=== PATIENT | male | born 1975 | race Two or more races ===

== ENCOUNTER 2018-07-19 21:29 | Emergency (ER) | payer OTHER ==
[2018-07-19 21:41] VITALS: BMI 25.8
--- NOTE | 2018-07-19 21:42 | PDOC ---
History of Present Illness - General Chief Complaint: Lightheaded Stated Complaint: AMS Time Seen by Provider: 07/19/18 21:42 - History of Present Illness Initial Comments: 07/19/18 22:06 The patient is a 42 year old male with a PMH of HTN who presents to our ED c/o acute onset of lightheadedness. Parents @ bedside assist with history. Patient was sitting talking with his parents when he suddenly felt lightheaded. Endorses some associated shortness of breath, denies chest pain, palpitations , nausea, diaphoresis. No previous similar episodes. Symptoms resolved within 10-15 minutes. Mother notes patient has not taken his BP medications for the last 2 days. States patient takes Amlodipine and one other BP medication that she cannot remember the name. 25 pack year smoker. No previous cardiac evaluation. No family cardiac history. The patient denies chest pain, abdominal pain, nausea/vomiting, diarrhea/ constipation, dysuria/hematuria, numbness/tingling. NKDA Surgical: denies Social: 1 ppd for 25 years, denies other toxic habits PMD: Dr. Sarabjit Heaton Past History - Past Medical History Allergies/Adverse Reactions: Allergies Allergy/AdvReac Type Severity Reaction Status Date / Time No Known Allergies Allergy Verified 04/15/18 11:19 Home Medications: Ambulatory Orders NK [No Known Home Medication] 06/16/14 COPD: No HTN: Yes - Suicide/Smoking/Psychosocial Hx Smoking Status: Yes Smoking History: Never smoked Have you smoked in the past 12 months: Yes Number of Cigarettes Smoked Daily: 20 Information on smoking cessation initiated: No Hx Alcohol Use: No Drug/Substance Use Hx: No Substance Use Type: None Review of Systems - Review of Systems Constitutional: No: Chills, Fever HEENTM: No: Blurred Vision, Double Vision Respiratory: Yes: Shortness of Breath Cardiac (ROS): Yes: Lightheadedness. No: Chest Pain, Palpitations, Syncope ABD/GI: No: Constipated, Diarrhea, Nausea, Vomiting : No: Burning, Dysuria *Physical Exam - Vital Signs Last Vital Signs Temp Pulse Resp BP Pulse Ox 97.8 F 89 20 165/100 99 07/19/18 21:36 07/19/18 21:36 07/19/18 21:36 07/19/18 21:36 07/19/18 21:36 - Physical Exam General Appearance: Yes: Nourished, Appropriately Dressed, Other HEENT: positive: Normal Voice, Hearing Grossly Normal Neck: positive: Trachea midline, Supple Respiratory/Chest: positive: Lungs Clear, Normal Breath Sounds Cardiovascular: positive: S1, S2. negative: Edema, JVD Vascular Pulses: Dorsalis-Pedis (R): 2+, Doralis-Pedis (L): 2+ Gastrointestinal/Abdominal: positive: Normal Bowel Sounds, Soft Extremity: positive: Normal Capillary Refill, Normal Inspection Integumentary: positive: Normal Color, Dry, Warm Neurologic: positive: Fully Oriented, Alert Heart Score/ECG Review - ECG Impressions Comment:: 07/21/18 01:40 SR HR 89, left atrial enlargement, no ZHOU/STD/TWI, non-ischemic ECG. ED Treatment Course - LABORATORY CBC & Chemistry Diagram: 07/19/18 22:30 07/19/18 22:30 Medical Decision Making - Medical Decision Making 07/19/18 22:29 42 year old male with 25 pack year history presents with acute onset of lightheadedness w/associated subjective dyspnea. Hypertensive (165/100) @ presentation. H/o non-medication adherence. Will obtain basic labs, EKG, Troponin. Reassess. ECG non-ischemic, documented in ECG section of EMR 07/19/18 22:52 Leukocytosis (13.4) - will obtain UA, CXR to r/o active infection 07/19/18 23:09 Cr 1.4 (previous Cr 1.3) Troponin (-) x1 07/19/18 23:14 UA shows 3+ blood, 72 RBC. Will obtain spiral CT to r/o stone. 07/20/18 00:09 Repeat BP 148/83 Patient signed out to Dr. Liang (Resident) and Dr. Romo (Attending) awaiting abdominal CT. *DC/Admit/Observation/Transfer Diagnosis at time of Disposition: Atypical chest pain, Renal cyst - Discharge Dispostion Disposition: HOME Condition at time of disposition: Stable - Referrals Referrals: Bruno Meek MD [Primary Care Provider] - Anselmo Heaton MD [Staff Physician] - - Patient Instructions Printed Discharge Instructions: DI for Atypical Chest Pain Additional Instructions: Please follow up with your primary care physician in 1-[address] You had a [address] scan which showed that you had a small cyst in your left kidney. Please ask Dr. Heaton which urologist you should follow up with. Please return to the ER if you have any signs or symptoms of chest pain, shortness of breath, uncontrollable fever, chills, nausea, vomiting, numbness, tingling, or weakness in any part of your body, changes in vision, or slurred speech. Please return to the ER if symptoms persist, worsen, or new symptoms arise. - Post Discharge Activity
[2018-07-19] MEDS ORDERED: amLODIPine BESYLATE 5 MG TABLET (FP) PO ONE (22:07)
[2018-07-19] MEDS ORDERED: amLODIPine BESYLATE 5 MG TABLET (FP) ONE (22:22)
--- NOTE | 2018-07-19 22:24 | PDOC ---
Attending Attestation - Resident Resident Name: Ashley Ugalde - ED Attending Attestation I have performed the following: I have examined & evaluated the patient, The case was reviewed & discussed with the resident, I agree w/resident's findings & plan, Exceptions are as noted - HPI HPI: 07/19/18 22:23 Well-nourished well-developed 42-year-old male presents to the emergency department after an episode of lightheadedness. He denies headache, nausea, vomiting, chest pain or shortness Or extremity weakness or confusion - Physicial Exam PE: 07/19/18 22:25 wnwd 42 yo male p/w after feeling lightheaded and fatigued head ncat eyes fortunato eomi neck supple,no jvd,no bruits lungs cta b/l cvs [id number] no murmer abd nontender no cva tenderness extremitties no deformities skin warm and dry neuro axx3,ambulatory - Medical Decision Making 07/19/18 22:30 pmh migraines social history 20 pk year tobacco history, works at [employer] PCP Dr Heaton 07/19/18 22:33 diff diag: vertigo/prodromal symptoms/atypical ACS plan ekg/cbc/comp
[2018-07-19 22:38] LABS: BASO % 0.6 % (0-2.0); EOS % 1.2 % (0-4.5); HEMATOCRIT 39.2 % (35.4-49); HEMOGLOBIN 13.9 GM/dL (11.7-16.9); LYMPH % 12.8 % (8-40); MCHC 35.4 g/dl (32.0-35.9); MEAN CELL VOLUME 84.7 fl (80-96); MEAN PLT VOLUME 8.4 fl (7.5-11.1); MONO % 5.5 % (3.8-10.2); NEUT % 79.9 % (42.8-82.8); PLATELET COUNT 265 K/MM3 (134-434); RBC 4.63 M/mm3 (4.00-5.60); RDW 13.9 % (11.9-15.9); WHITE BLOOD COUNT 13.4 K/mm3 (4.0-10.0)
[2018-07-19 23:01] LABS: ALBUMIN 3.6 g/dl (3.4-5.0); ALK PHOS 97 U/L (45-117); ANION GAP 7 MMOL/L (8-16); BILIRUBIN,TOTAL 0.2 mg/dL (0.2-1); BLOOD UREA NITROGEN 17 mg/dL (7-18); CALCIUM 8.5 mg/dL (8.5-10.1); CHLORIDE 107 mmol/L (98-107); CO2 27 mmol/L (21-32); CREATININE 1.4 mg/dL (0.55-1.3); GLUCOSE,RANDOM 135 mg/dL (74-106); POTASSIUM 3.7 mmol/L (3.5-5.1); SGOT/AST 23 U/L (15-37); SGPT/ALT 46 U/L (13-61); SODIUM 140 mmol/L (136-145); TOT PROT 7.1 g/dl (6.4-8.2)
[2018-07-19] MEDS ORDERED: SODIUM CHLORIDE 0.9% 500 ML INFUS.BAG IV ONE (23:09)
[2018-07-19 23:17] VITALS: BP 138/75
[2018-07-19 23:22] VITALS: PULSE 88; TEMP 98.5
[2018-07-19 23:54] LABS: URINE APPEARANCE CLEAR; URINE BILIRUBIN NEGATIVE (<2.0 mg/dL); URINE COLOR LTYELLOW; URINE GLUCOSE (UA) NEGATIVE (NEGATIVE); URINE KETONE NEGATIVE (NEGATIVE); URINE LEUK ESTERASE NEGATIVE (NEGATIVE); URINE NITRITE NEGATIVE (NEGATIVE); URINE PROTEIN NEGATIVE (NEGATIVE); URINE UROBILINOGEN NEGATIVE mg/dL (0.2-1.0)
[2018-07-19 23:57] LABS: URINE MUCUS RARE
--- NOTE | 2018-07-20 00:06 | PDOC ---
*Physical Exam - Vital Signs Last Vital Signs Temp Pulse Resp BP Pulse Ox 98.5 F 88 20 138/75 98 07/19/18 23:15 07/19/18 23:15 07/19/18 23:15 07/19/18 23:15 07/19/18 23:15 ED Treatment Course - LABORATORY CBC & Chemistry Diagram: 07/19/18 22:30 07/19/18 22:30 - ADDITIONAL ORDERS Additional order review: Laboratory Results 07/19/18 07/19/18 23:20 22:30 Sodium 140 Potassium 3.7 Chloride 107 Carbon Dioxide 27 Anion Gap 7 L BUN 17 Creatinine 1.4 H Creat Clearance w eGFR 55.85 Random Glucose 135 H Calcium 8.5 Total Bilirubin 0.2 AST 23 ALT 46 Alkaline Phosphatase 97 Creatine Kinase 96 Troponin I < 0.02 Total Protein 7.1 Albumin 3.6 Urine Color Ltyellow Urine Appearance Clear Urine pH 6.0 Ur Specific Patterson 1.014 Urine Protein Negative Urine Glucose (UA) Negative Urine Ketones Negative Urine Blood 3+ H Urine Nitrite Negative Urine Bilirubin Negative Urine Urobilinogen Negative Ur Leukocyte Esterase Negative Urine WBC (Auto) 2 Urine RBC (Auto) 72 Urine Mucus Rare 07/19/18 22:30 RBC 4.63 MCV 84.7 MCHC 35.4 RDW 13.9 MPV 8.4 Neutrophils % 79.9 Lymphocytes % 12.8 Monocytes % 5.5 Eosinophils % 1.2 Basophils % 0.6 - Medications Given in the ED: ED Medications Discontinued Medications Generic Name Dose Route Start Last Admin Trade Name Freq PRN Reason Stop Dose Admin Amlodipine Besylate 5 mg 07/19/18 22:07 07/19/18 22:24 Norvasc - PO 07/19/18 22:08 5 mg ONCE ONE Administration Sodium Chloride 1,000 ml 07/19/18 23:09 07/19/18 23:11 Normal Saline - IV 07/19/18 23:10 1,000 ml ONCE ONE Administration Medical Decision Making - Medical Decision Making 07/20/18 00:04 Pt signed out to me by Dr. Ugalde. 42M with a PMH of HTN who presents s/p episode of lightheadedness and SOB. Pending 2 troponin r/o. Repeat troponin ordered. CXR pending. Urine shows hematuria. 07/20/18 02:11 Repeat troponin negative. Spiral CT indicates renal cyst which may be hemorrhagic and causing hematuria. Will inform pt. 07/20/18 02:33 Pt informed and understands need to f/u with PCP. Will d/c home with PCP f/u. *DC/Admit/Observation/Transfer Diagnosis at time of Disposition: Atypical chest pain, Renal cyst - Discharge Dispostion Disposition: HOME Condition at time of disposition: Stable Decision to Admit order: No - Referrals Referrals: Bruno Meek MD [Primary Care Provider] - Anselmo Heaton MD [Staff Physician] - - Patient Instructions Printed Discharge Instructions: DI for Atypical Chest Pain Additional Instructions: Please follow up with your primary care physician in 1-[address] days[address] You had a [address] scan which showed that you had a small cyst in your left kidney. Please ask Dr. Heaton which urologist you should follow up with. Please return to the ER if you have any signs or symptoms of chest pain, shortness of breath, uncontrollable fever, chills, nausea, vomiting, numbness, tingling, or weakness in any part of your body, changes in vision, or slurred speech. Please return to the ER if symptoms persist, worsen, or new symptoms arise. - Post Discharge Activity
--- NOTE | 2018-07-20 10:30 | EKG ---
Test Reason : Blood Pressure : / mmHG Vent. Rate : 089 BPM Atrial Rate : 089 BPM P-R Int : 156 ms QRS Dur : 086 ms QT Int : 358 ms P-R-T Axes : 057 047 034 degrees QTc Int : 435 ms NORMAL SINUS RHYTHM POSSIBLE LEFT ATRIAL ENLARGEMENT BORDERLINE ECG WHEN COMPARED WITH ECG OF 15-APR-2018 11:21, T WAVE AMPLITUDE HAS DECREASED IN ANTERIOR LEADS Confirmed by PARVIZ VALENCIA MD ([id number]) on 07/20/2018 10:30:18 AM Referred By: Confirmed By:PARVIZ VALENCIA MD
== END 2018-07-20 03:36 | disposition home or self-care (01) ==
LOC: JER 21:29
DX: R07.9 Chest pain, unspecified (principal); I10 Essential (primary) hypertension; N28.1 Cyst of kidney, acquired
CPT/HCPCS: 36415; 71045-TC-FY; 74176; 80053; 81003; 81015; 82550; 84484; 85025; 93005; 93010; 99283-25

== ENCOUNTER 2018-12-19 09:48 | Emergency (ER) | payer OTHER ==
[2018-12-19 09:55] VITALS: BP 159/97; PULSE 82; TEMP 98.2; BMI 25.8
[2018-12-19] MEDS ORDERED: KETOROLAC TROMETHAMINE 60 MG/2 ML VIAL IM ONE (10:05)
[2018-12-19] MEDS ORDERED: CYCLOBENZAPRINE HCL 10 MG TABLET (FP) ONE (10:07)
[2018-12-19] MEDS ORDERED: KETOROLAC TROMETHAMINE 60 MG/2 ML VIAL ONE (10:07)
--- NOTE | 2018-12-19 10:11 | PDOC ---
History of Present Illness - General Chief Complaint: Pain, Acute Stated Complaint: LT SIDE STIFF NECK Time Seen by Provider: 12/19/18 10:02 History Source: Patient (woke with stiff neck to the left this morning, no BUZZ nicholson,f/c) Exam Limitations: No Limitations - History of Present Illness Timing/Duration: unsure Associated Symptoms: denies: fever/chills, headaches, nausea/vomiting, shortness of breath, weakness Past History - Travel Close contact w/someone who was outside of country & ill: No - Past Medical History Allergies/Adverse Reactions: Allergies Allergy/AdvReac Type Severity Reaction Status Date / Time No Known Allergies Allergy Verified 12/19/18 09:53 Home Medications: Ambulatory Orders Cyclobenzaprine HCl [Flexeril 10 mg] 10 mg PO BID PRN 5 Days #20 tablet Ibuprofen 800 mg PO ACDIN 7 Days #21 tablet 12/19/18 COPD: No HTN: Yes - Immunization History Immunization Up to Date: Yes - Suicide/Smoking/Psychosocial Hx Smoking Status: Yes Smoking History: Current every day smoker Have you smoked in the past 12 months: Yes Number of Cigarettes Smoked Daily: 20 Information on smoking cessation initiated: No Hx Alcohol Use: No Drug/Substance Use Hx: No Substance Use Type: None Review of Systems - Review of Systems Constitutional: No: Chills, Fever HEENTM: No: Throat Pain, Throat Swelling Respiratory: No: Shortness of Breath Cardiac (ROS): No: Chest Pain, Irregular Heart Rate, Palpitations, Chest Tightness Musculoskeletal: Yes: Neck Pain, Other (left neck stiffness). No: Muscle Pain, Muscle Weakness Neurological: No: Headache, Numbness, Paresthesia, Tingling, Weakness, Unsteady Gait, Ataxia, Dizziness *Physical Exam - Vital Signs Last Vital Signs Temp Pulse Resp BP Pulse Ox 98.2 F 82 16 159/97 97 12/19/18 09:53 12/19/18 09:53 12/19/18 09:53 12/19/18 09:53 12/19/18 09:53 - Physical Exam General Appearance: Yes: Nourished HEENT: positive: EOMI, CIPRIANO, TMs Normal, Pharynx Normal Neck: positive: Supple, Decreased range of motion (+ tenderness and spasm in anterior fiber of scm muscle and trapezius on the left, + lateral flexion about 20 degrees. 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 intact, Fully Oriented, Alert, Normal Mood/ Affect, Normal Response, Motor Strength 5/5 Medical Decision Making - Medical Decision Making 12/19/18 10:11 43y/o M with left sided neck stiffness and pain upon awakening this morning denies trauma, GREBER, visible disturbance, f/c exam consistent with limited lateral flexion on the left side with tenderness on the the SCM and trapezius muscle, no meningeal sign suspect muscle spasm toradol and muscle relaxer given dispo pending 12/19/18 10:18 12/19/18 11:19 pt reassessed after meds, felt much better *DC/Admit/Observation/Transfer Diagnosis at time of Disposition: Torticollis - Discharge Dispostion Disposition: HOME Condition at time of disposition: Stable Decision to Admit order: No - Prescriptions Prescriptions: Cyclobenzaprine HCl [Flexeril 10 mg] 10 mg PO BID PRN 5 Days #20 tablet PRN Reason: Pain Level 4 - 6 Ibuprofen 800 mg PO ACDIN 7 Days #21 tablet - Referrals Referrals: Romi Sethi MD [Primary Care Provider] - - Patient Instructions Printed Discharge Instructions: Torticollis Additional Instructions: Please lie flat today apply warm compress to area Follow up with your PCP in 2-3 days for reassessment Return to the ER if worsening symptoms occurs - Post Discharge Activity Forms/Work/School Notes: Back to Work
[2018-12-19] MEDS ORDERED: CYCLOBENZAPRINE HCL 5 MG TABLET PO SCH (10:15)
== END 2018-12-19 11:27 | disposition home or self-care (01) ==
LOC: JERFT 09:48
PROC: 3E0233Z Introduction of Anti-inflammatory into Muscle, Percutaneous Approach (ICD-10-PCS; principal; 2018-12-19)
DX: M43.6 Torticollis (principal); I10 Essential (primary) hypertension
CPT/HCPCS: 96372; 99281-25

== ENCOUNTER 2019-01-18 23:21 | Emergency (ER) | payer OTHER ==
[2019-01-18 23:24] VITALS: BMI 25.8
[2019-01-18] MEDS ORDERED: ACETAMINOPHEN 1000 MG/100 ML VIAL (NON FORMULARY) IVPB ONE (23:56)
[2019-01-18] MEDS ORDERED: SODIUM CHLORIDE 0.9% 500 ML INFUS.BAG IV ONE (23:56)
--- NOTE | 2019-01-19 | PDOC ---
History of Present Illness - General Chief Complaint: Blood Pressure Problem Stated Complaint: HIGH BLOOD PRESURE Time Seen by Provider: 01/18/19 23:32 - History of Present Illness Initial Comments: 01/18/19 23:57 The patient is a 43 year old male with a PMH of HTN and migraines who presents to our ED c/o 2-3 days of headache. Headache is frontal and pounding and today patient had 4 episodes of NBNB emesis prompting him to come to the ED. Quality and severity not consistent w/previous migraines. Took an Amlopdipine and Losartan today at 3 pm, notes he has not taken his BP medications for the last 2 -3 months. Measuring BP at home over the last 2-3 days with 180's-220's/100's- 130's) 28 year pack year history. NKDA Medications: Amlodipine (5 mg QD), Lisinopril (100 mg QD) - non adherent As per EMR, patient evaluated in our ED in 2012-2018for lightheadedness and headaches. 01/19/19 00:22 Past History - Past Medical History Allergies/Adverse Reactions: Allergies Allergy/AdvReac Type Severity Reaction Status Date / Time No Known Allergies Allergy Verified 01/18/19 23:24 Home Medications: Ambulatory Orders Cyclobenzaprine HCl [Flexeril 10 mg] 10 mg PO BID PRN 5 Days #20 tablet Ibuprofen 800 mg PO ACDIN 7 Days #21 tablet 12/19/18 COPD: No HTN: Yes - Immunization History Immunization Up to Date: Yes - Suicide/Smoking/Psychosocial Hx Smoking Status: Yes Smoking History: Current every day smoker Have you smoked in the past 12 months: Yes Number of Cigarettes Smoked Daily: 20 Information on smoking cessation initiated: Yes Hx Alcohol Use: No Drug/Substance Use Hx: No Substance Use Type: None Review of Systems - Review of Systems Constitutional: No: Chills, Fever HEENTM: Yes: Other (headache) Respiratory: No: Cough, Shortness of Breath Cardiac (ROS): No: Chest Pain, Lightheadedness, Palpitations, Syncope ABD/GI: No: Constipated, Diarrhea, Nausea, Vomiting : No: Burning, Dysuria *Physical Exam - Vital Signs Last Vital Signs Temp Pulse Resp BP Pulse Ox 97.8 F 101 H 18 208/112 H 99 01/18/19 23:22 01/18/19 23:22 01/18/19 23:22 01/18/19 23:22 01/18/19 23:22 - Physical Exam Comments: 01/19/19 04:02 General: Awake, alert, non-toxic appearing CV: S1,S2, no M/R/G Abdomen: Soft, no TTP (+) bowel sounds Respiratory: CLTA B/L, no wheeze/crackle Neuro: A&O x3, non ataxic gait Extremity: 2+ DP pulses, no edema Heart Score/ECG Review - ECG Impressions Comment:: 01/19/19 00:30 EKG show HR 90, NSR, elevated T wave amplitude non-acute, no ZHOU/STD/TWI ED Treatment Course - LABORATORY CBC & Chemistry Diagram: 01/19/19 00:37 01/19/19 00:37 - RADIOLOGY Radiology Studies Ordered: Category Date Time Status HEAD CT WITHOUT CONTRAST [CT] Stat CT Scan 01/18/19 23:55 Ordered CXRPORT [CHEST X-RAY PORTABLE*] [RAD] Stat Radiology 01/18/19 23:55 Ordered Medical Decision Making - Medical Decision Making 01/19/19 00:02 43 year old male with 2-3 days of high blood pressure and headache w/emesis. Headache inconsistent w/chronic migraine headaches. Hypertensive (BP 208/110) @ presentation. Repeat BP 191/92. No focal neurologic deficits on exam. Will obtain Head CT to r/o acute SAH, also CMP for end organ damage. 01/19/19 01:31 My read of head CT shows no hemorrhage, no mass, no midline shift Repeat SBPs 120's 01/19/19 01:[address] negative Cr 1.1 BS 145 - patient last meal @ 1400 Patient stable for discharge home, counseled on importance of medication adherence, smoking cessation and follow-up with PMD both for HTN and evaluation of elevated blood sugar. I discussed the physical exam findings, ancillary test results and final diagnoses with the patient. I answered all of the patient's questions. The patient was satisfied with the care received and felt comfortable with the discharge plan and treatment plan. The patient will return to the Emergency Department with any new, persistent or worsening symptoms. *DC/Admit/Observation/Transfer Diagnosis at time of Disposition: High blood pressure - Discharge Dispostion Disposition: HOME Condition at time of disposition: Good Decision to Admit order: No - Referrals Referrals: Anselmo Heaton MD [Primary Care Provider] - - Patient Instructions Printed Discharge Instructions: DI for High Blood Pressure, Smoking Cessation Additional Instructions: Please take all your blood pressure medications as directed. Follow up with your primary care doctor in the next three days. Your care is not complete until you are evaluated by your primary care doctor. You should stop smoking for your health. Medical options to help you stop smoking include the nicotine patch or a medication such as Wellbutrin. You can discuss these options with your primary care doctor. Return to the Emergency Department for any new/worsening/concerning symptoms. - Post Discharge Activity
[2019-01-19] MEDS ORDERED: ACETAMINOPHEN INJECTION 100 ML IVPB ONE (00:11)
[2019-01-19 01:17] VITALS: TEMP 98.7
[2019-01-19 01:31] LABS: BASO % 0.5 % (0-2.0); HEMATOCRIT 38.7 % (35.4-49); HEMOGLOBIN 13.3 GM/dL (11.7-16.9); LYMPH % 32.4 % (8-40); MCHC 34.4 g/dl (32.0-35.9); MEAN CELL VOLUME 84.2 fl (80-96); MEAN PLT VOLUME 8.9 fl (7.5-11.1); MONO % 7.5 % (3.8-10.2); NEUT % 56.6 % (42.8-82.8); PLATELET COUNT 238 K/MM3 (134-434); RBC 4.59 M/mm3 (4.00-5.60); RDW 14.1 % (11.9-15.9); WHITE BLOOD COUNT 9.2 K/mm3 (4.0-10.0)
--- NOTE | 2019-01-19 01:32 | PDOC ---
Documentation entered by Bethany Lott SCRIBE, acting as scribe for Noemí Romo MD. Noemí Romo MD: This documentation has been prepared by the Kaylie padgett Xhesika, SCRIBE, under my direction and personally reviewed by me in its entirety. I confirm that the documentation accurately reflects all work, treatment, procedures, and medical decision making performed by me. Attending Attestation - Resident Resident Name: Ashley Ugalde - ED Attending Attestation I have performed the following: I have examined & evaluated the patient, The case was reviewed & discussed with the resident, I agree w/resident's findings & plan, Exceptions are as noted - HPI HPI: 01/18/19 23:59 The patient is a 43 year old male with a past medical history of migraines and HTN (non compliant with medication) who presents to our ED with 2 days of a headache. The patient states he was experiencing pressure behind his eyes associated with 4 episodes of NBNB vomiting. The patient states his blood pressure was 208/112. 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 The patient denies chest pain, shortness of breath or dizziness. The patient denies fever, chills, nausea, diarrhea or constipation. The patient denies dysuria, frequency, urgency or hematuria. Allergy: NKDA Surgical History: None reported Social History: 1 ppd for 25 years, denies other toxic habits PCP: Dr. Ty Heaton - Physicial Exam PE: 01/19/19 00:00 GENERAL: Awake, alert, and fully oriented, in no acute distress HEAD: No signs of trauma EYES: PERRLA, EOMI, sclera anicteric, conjunctiva clear ENT: Auricles normal inspection, hearing grossly normal, nares patent, oropharynx clear without exudates. Moist mucosa NECK: Normal ROM, supple, no lymphadenopathy, JVD, or masses LUNGS: Breath sounds equal, clear to auscultation bilaterally. No wheezes, and no crackles HEART: Regular rate and rhythm, normal S1 and S2, no murmurs, rubs or gallops ABDOMEN: Soft, nontender, normoactive bowel sounds. No guarding, no rebound. No masses EXTREMITIES: Normal range of motion, no edema. No clubbing or cyanosis. No cords, erythema, or tenderness NEUROLOGICAL: Cranial nerves II through XII grossly intact. Normal speech, normal gait - Medical Decision Making 01/19/19 00:29 This pt had a headache and vomiting, BP 208/110 Now BP 191/92 01/19/19 01:28 no SBP only 120's 01/19/19 01:31 He has no focal neuro deficits,no headache currently and he is normotensive 01/19/19 01:42 ct scan head : no bleed, no infarct, no masses,no midline shift 01/19/19 01:43 BP =119/80 and pt discharged home pt encouraged to take his blood pressure meds ,stop smoking and see his PCP,Dr Heaton
[2019-01-19 01:58] LABS: ALBUMIN 3.3 g/dl (3.4-5.0); ALK PHOS 100 U/L (45-117); ANION GAP 7 MMOL/L (8-16); BILIRUBIN,TOTAL 0.3 mg/dL (0.2-1); BLOOD UREA NITROGEN 20 mg/dL (7-18); CALCIUM 8.1 mg/dL (8.5-10.1); CHLORIDE 107 mmol/L (98-107); CO2 25 mmol/L (21-32); CREATININE 1.1 mg/dL (0.55-1.3); GLUCOSE,RANDOM 145 mg/dL (74-106); POTASSIUM 3.5 mmol/L (3.5-5.1); SGOT/AST 27 U/L (15-37); SGPT/ALT 50 U/L (13-61); SODIUM 140 mmol/L (136-145); TOT PROT 6.6 g/dl (6.4-8.2)
[2019-01-19 02:11] VITALS: BP 153/89; PULSE 88
--- NOTE | 2019-01-19 11:37 | EKG ---
Test Reason : Blood Pressure : / mmHG Vent. Rate : 090 BPM Atrial Rate : 090 BPM P-R Int : 154 ms QRS Dur : 084 ms QT Int : 366 ms P-R-T Axes : 069 071 027 degrees QTc Int : 447 ms NORMAL SINUS RHYTHM NONSPECIFIC T WAVE ABNORMALITY ABNORMAL ECG WHEN COMPARED WITH ECG OF 19-JUL-2018 22:33, NO SIGNIFICANT CHANGE WAS FOUND Confirmed by Peng Stiles MD ([id number]) on 01/19/2019 11:37:10 AM Referred By: Confirmed By:Peng Stiles MD
== END 2019-01-19 02:03 | disposition home or self-care (01) ==
LOC: JER 23:21
PROC: 3E033NZ Introduction of Analgesics, Hypnotics, Sedatives into Peripheral Vein, Percutaneous Approach (ICD-10-PCS; principal; 2019-01-18)
DX: I10 Essential (primary) hypertension (principal)
CPT/HCPCS: 36415; 70450-TC; 71045-TC-FY; 80053; 82550; 82553; 84484; 85025; 93005; 93010; 96374; 99283-25; J0131